=== PATIENT | male | born 1960 | race Caucasian/White ===

== ENCOUNTER 2019-05-11 09:49 | Emergency (ER) | payer OTHER ==
[~2019-05-11] VITALS: Ht 177.8 cm; Wt 90.7 kg
[~2019-05-11 09:49] MED LIST: AMOCLA875 PO; ATEN100 PO; GABA300 PO; HYDR1TAB94 PO; INSU100I6; INSULANPEN; LEVSOD50 PO; LISI20 PO; Prozac20 MG PO; QUET200 PO; TIZANIDINE HCL4 MG PO
[2019-05-11] MEDS ORDERED: Percocet 5-3251 EACH PO (13:19)
== END 2019-05-11 13:27 | disposition home or self-care (01) ==
LOC: ER 09:49
DX: S43.101A Unspecified dislocation of right acromioclavicular joint, initial encounter (principal); E11.9 Type 2 diabetes mellitus without complications; I10 Essential (primary) hypertension; F17.210 Nicotine dependence, cigarettes, uncomplicated; Z88.5 Allergy status to narcotic agent; Z79.899 Other long term (current) drug therapy; Z79.4 Long term (current) use of insulin; W06.XXXA Fall from bed, initial encounter
CPT/HCPCS: 73030; 99283-25

== ENCOUNTER 2021-03-17 05:44 | Emergency (ER) | payer OTHER ==
[~2021-03-17] VITALS: Ht 177.8 cm; Wt 87.5 kg
[~2021-03-17 05:44] MED LIST changes: +Percocet 5-3251 EACH PO
[2021-03-17] MEDS ORDERED: FENTANYL1 EAC7 TOP (07:21)
[2021-03-17] MEDS ORDERED: FENTANYL1 EAC3 TOP (08:00)
[2021-03-17] MEDS ORDERED: FARXIGA10 MG PO (14:16)
== END 2021-03-17 08:01 | disposition home or self-care (01) ==
LOC: ER 05:44
DX: R10.84 Generalized abdominal pain (principal); F17.210 Nicotine dependence, cigarettes, uncomplicated; Z88.5 Allergy status to narcotic agent; Z79.4 Long term (current) use of insulin; Z79.899 Other long term (current) drug therapy
CPT/HCPCS: 36415; 93005; 93010; 99283-25; A9270

== ENCOUNTER 2021-03-17 13:08 | Day surgery (SDC) | payer OTHER ==
[~2021-03-17] VITALS: Ht 177.8 cm; Wt 84.7 kg
[~2021-03-17 13:08] MED LIST changes: +FENTANYL1 EAC3 TOP; +FENTANYL1 EAC7 TOP
[2021-03-17] MEDS ORDERED: FARXIGA10 MG PO (14:16)
--- NOTE | 2021-03-17 14:47 | NUR ---
03/17/21 1447 Suri Pearson ([facility] 77; ANESTHESIOLOGIST NOTIFIED. ORDER FOR 200ML BOLUS LACTATED RINGERS WITH DEXTROSE 5% ONCE NOW. PT DENIES ANY SYMPTOMS RELATED TO HYPOGLYCEMIA. VSS. CALL LIGHT WITHIN REACH, DENIES NEEDS AT THIS TIME.
--- NOTE | 2021-03-17 15:42 | NUR ---
03/17/21 1545 Maddison Hines PT IS IN [employer]. HE STATES PAIN IS TOLERABLE NOW AT 4/10. HE IS STILL ON 2L O2 AND IS SATING AT 96%. WILL SEE HOW HE DOES ON RA .
== END 2021-03-17 15:56 | disposition home or self-care (01) ==
LOC: ORSCSDS 13:08
PROVIDERS: Internal Medicine Gastroenterology
PROC: 0DJ08ZZ Inspection of Upper Intestinal Tract, Via Natural or Artificial Opening Endoscopic (ICD-10-PCS; principal; 2021-03-17 14:30)
DX: K74.60 Unspecified cirrhosis of liver (principal); Z13.810 Encounter for screening for upper gastrointestinal disorder; I10 Essential (primary) hypertension; B19.20 Unspecified viral hepatitis C without hepatic coma; K21.9 Gastro-esophageal reflux disease without esophagitis; E11.9 Type 2 diabetes mellitus without complications; Z79.4 Long term (current) use of insulin; Z79.899 Other long term (current) drug therapy
CPT/HCPCS: 82947; J0330; J0461; J2405; J2704; J3010; J7120

== ENCOUNTER 2021-03-19 14:58 | Emergency (ER) | payer OTHER ==
[~2021-03-19] VITALS: Ht 177.8 cm; Wt 78.9 kg
[~2021-03-19 14:58] MED LIST changes: +FARXIGA10 MG PO
== END 2021-03-19 15:46 | disposition home or self-care (01) ==
LOC: ER 14:58
DX: M54.9 Dorsalgia, unspecified (principal); E11.9 Type 2 diabetes mellitus without complications; I10 Essential (primary) hypertension; F17.210 Nicotine dependence, cigarettes, uncomplicated; Z88.5 Allergy status to narcotic agent; Z79.4 Long term (current) use of insulin; Z79.899 Other long term (current) drug therapy
CPT/HCPCS: 99282